=== PATIENT | male | born 1940 | race Caucasian/White ===

== ENCOUNTER 2021-10-24 15:59 | Emergency (ER) | payer MEDICARE, BC ==
[~2021-10-24] VITALS: Ht 182.9 cm; Wt 90.7 kg
[2021-10-24] MEDS ORDERED: APIX2.5T PO (16:14)
--- NOTE | 2021-10-24 16:17 | NUR ---
BIB [facility], from private residence. Provider at bedside. Pt in NAD at this time.
[2021-10-24 17:01] LABS: HEMATOCRIT 45.4 % (36.7-47.1); MEAN CORPUSCULAR HEMOGLOBIN 31.5 uug (23.8-33.4); MEAN CORPUSCULAR VOLUME 94.1 fL (73.0-96.2); PLATELET COUNT (AUTO) 159 K/uL (152-348)
--- NOTE | 2021-10-24 17:04 | NUR ---
Pt taken for CT via gurney by tech. Pt in stable condition at this time
[2021-10-24 17:08] LABS: CREATININE 1.3 mg/dL (0.6-1.3); POTASSIUM 4.6 mmol/L (3.5-5.1)
[2021-10-24] MEDS ORDERED: ATOR40TA PO (17:20)
[2021-10-24] MEDS ORDERED: ALLO100T PO (17:20)
[2021-10-24] MEDS ORDERED: BUPR-319 PO (17:21)
[2021-10-24] MEDS ORDERED: CARB-35 PO (17:21)
[2021-10-24] MEDS ORDERED: IPRA4AER IH (17:22)
--- NOTE | 2021-10-24 17:22 | NUR ---
Pt returned to unit following CT scan. Spouse at bedside. Pt continues to be in stable condition. Both pt and spouse aware of current plan.
[2021-10-24] MEDS ORDERED: FURO-152 PO (17:23)
[2021-10-24] MEDS ORDERED: LITH300T3 PO (17:23)
[2021-10-24] MEDS ORDERED: DOXA8TAB79 PO (17:23)
[2021-10-24 17:24] LABS: BILIRUBIN,DIRECT 0.2 mg/dL (0.0-0.2); BILIRUBIN,TOTAL 0.7 mg/dL (0.2-1.0); TOTAL PROTEIN, SERUM 7.8 g/dL (6.4-8.2)
[2021-10-24] MEDS ORDERED: OMEP40CA21 PO (17:24)
[2021-10-24] MEDS ORDERED: POTA-194 PO (17:25)
[2021-10-24] MEDS ORDERED: ALFU10TA10 PO (17:25)
[2021-10-24] MEDS ORDERED: levaquin PO (17:27)
[2021-10-24 17:37] LABS: *BILIRUBIN,URIN NEGATIVE (NEGATIVE); *CLARITY,URINE CLEAR (CLEAR); *COLOR,URINE YELLOW (YELLOW); *KETONES,URINE NEGATIVE (NEGATIVE); *UROBILINOGEN,URINE 0.2 E.U./dl (NORMAL); LEUKOCYTE ESTERASE ,URINE NEGATIVE (NEGATIVE); NITRITE, URINE NEGATIVE (NEGATIVE); PH,URINE 6.5 (5.0-8.0); UGLUCOSE NEGATIVE (NEGATIVE)
[2021-10-24 17:38] LABS: *BLOOD, URINE TRACE (NEGATIVE); RBC,URINE 0-3 /HPF (0-3)
[2021-10-24 17:39] LABS: BACTERIA,URINE NONE SEEN /HPF (NONE SEEN); WBC,URINE 0-3 /HPF (0-3)
--- NOTE | 2021-10-24 18:30 | NUR ---
Patient discharged to home in stable condition accompanied by spouse. Written and verbal after care instructions given and spouse. Patient and spouse verbalizes understanding of instructions. Stressed follow up or return to ER for worsening s/s.
[2021-10-24 18:49] VITALS: BP 172/73
== END 2021-10-24 18:45 | disposition home or self-care (01) ==
LOC: ER 15:59
DX: R41.0 Disorientation, unspecified (principal); R09.02 Hypoxemia; Z20.822 Contact with and (suspected) exposure to COVID-19; Z82.49 Family history of ischemic heart disease and other diseases of the circulatory system; I48.91 Unspecified atrial fibrillation; R60.0 Localized edema; Z79.01 Long term (current) use of anticoagulants; Z79.899 Other long term (current) drug therapy; M10.9 Gout, unspecified; Z86.718 Personal history of other venous thrombosis and embolism; I11.0 Hypertensive heart disease with heart failure; I50.9 Heart failure, unspecified
CPT/HCPCS: 36415; 70030-TC; 70450; 71045; 83605; 84443; 85025; 85730; 87040; 87086; 87400; 93005; A4663

== ENCOUNTER 2022-05-04 14:44 | Inpatient (IN) | payer MEDICARE, BC ==
[~2022-05-04] VITALS: Ht 182.9 cm; Wt 95.3 kg
[~2022-05-04 14:44] MED LIST: ALFU10TA10 PO; ALLO100T PO; APIX2.5T PO; ATOR40TA PO; BUPR-319 PO; CARB-35 PO; DOXA8TAB79 PO; FURO-152 PO; IPRA4AER IH; LITH300T3 PO; OMEP40CA21 PO; POTA-194 PO; levaquin PO
[2022-05-04] MEDS ORDERED: FAMOTIDINE. 20 MG/2 ML VIAL IV ONE ×2 (15:00→15:17)
--- NOTE | 2022-05-04 15:26 | NUR ---
PT IS IN ROOM #2B. DR BURRELL EVALUATED THE PT.
[2022-05-04 15:30] LABS: HEMATOCRIT 42.1 % (36.7-47.1); MEAN CORPUSCULAR HEMOGLOBIN 31.3 uug (23.8-33.4); MEAN CORPUSCULAR VOLUME 92.6 fL (73.0-96.2); PLATELET COUNT (AUTO) 202 K/uL (152-348)
[2022-05-04 15:38] LABS: CARBON DIOXIDE 36 mmol/L (21-32); CHLORIDE 103 mmol/L (98-107); CREATININE 1.2 mg/dL (0.6-1.3); GLUCOSE 93 mg/dL (74-106); POTASSIUM 3.6 mmol/L (3.5-5.1); UREA NITROGEN, BLOOD 22 mg/dL (7-18)
[2022-05-04 15:49] LABS: ALANINE AMINOTRANSFERASE 17 U/L (16-63); ALKALINE PHOSPHATASE 67 U/L (50-136); ASPARTATE AMINOTRANSFERASE 46 U/L (15-37); BILIRUBIN,DIRECT 0.3 mg/dL (0.0-0.2); BILIRUBIN,TOTAL 0.9 mg/dL (0.2-1.0); TOTAL PROTEIN, SERUM 7.7 g/dL (6.4-8.2)
[2022-05-04] MEDS ORDERED: GABA300C PO (15:52)
[2022-05-04] MEDS ORDERED: BISA10SU61 RC (15:52)
[2022-05-04] MEDS ORDERED: POLY17PO4 PO (15:52)
[2022-05-04] MEDS ORDERED: MAGN400O6 PO (15:52)
[2022-05-04] MEDS ORDERED: SENN-261 PO (15:52)
[2022-05-04] MEDS ORDERED: APIX2.5T PO (15:52)
[2022-05-04] MEDS ORDERED: BUPR300T52 PO (15:52)
[2022-05-04] MEDS ORDERED: ACET-2154 PO (15:52)
[2022-05-04] MEDS ORDERED: NA P133E RC (15:52)
[2022-05-04] MEDS ORDERED: VANCOMYCIN IV 1,000 MG in IV DEXTROSE 5% 250 ML IV ONE (16:15)
[2022-05-04] MEDS ORDERED: PIPERACILLIN SODIUM/TAZOBACTAM 3.375 G in IV DEXTROSE 5% 50 ML IV ONE (16:15)
[2022-05-04] MEDS ORDERED: VANCOMYCIN IV 200 ML ONE (16:28)
[2022-05-04] MEDS ORDERED: PIPERACILLIN/TAZOBACTAM/D5W 50 ML IV ONE ×3 (16:29→22:58)
[2022-05-04] MEDS ORDERED: ONDANSETRON 4 MG/2 ML VIAL IV PRN (19:45)
[2022-05-04] MEDS ORDERED: MORPHINE SULFATE 2 MG/1 ML DISP.SYRIN IV PRN (19:45)
--- NOTE | 2022-05-04 20:07 | NUR ---
Report given to Stefany MARLOW Medsurg.
[2022-05-04 20:30] VITALS: BP 116/41
[2022-05-04] MEDS: LITHIUM CARBONATE 300 MG TABLET.SA PO SCH (21:00)
[2022-05-04] MEDS ORDERED: IPRATROPIUM BROMIDE 0.5 MG/2.5 ML NEBU NEB PRN (22:00)
[2022-05-04] MEDS ORDERED: PIPERACILLIN SODIUM/TAZOBACTAM 3.375 G in IV DEXTROSE 5% 50 ML IV SCH (22:00)
[2022-05-04] MEDS ORDERED: IV D5 1/2 NS 1000 ML 1,000 ML IV PRN (22:00)
[2022-05-04] MEDS ORDERED: ALBUTEROL SULFATE 1.25 MG/3 ML NEBU NEB PRN (22:00)
--- NOTE | 2022-05-04 22:00 | NUR ---
Pt admitted to [facility] from ER via gurney accompanied by ER nurse and daughter. He is alert and oriented x2 with episodes of confusion. Denies pain and discomfort at this times. On room air, no respiratory distress noted. IV access on RFA #20 patent and intact, flushed with NS. Initial and full body assessment done with pictures taken and placed in chart. All needs attended. Safety precautions observed. Will continue to monitor. Addendum: 05/05/22 at 0633 by CHARLIE ONEILL RN Sacrum noted with redness, unable to take picture. Pt refused.
[2022-05-04] MEDS ORDERED: CARBIDOPA/LEVODOPA 25-100MG TABLET ONE (22:45)
[2022-05-04] MEDS ORDERED: ALFUZOSIN HCL 10 MG TAB.SR.24H PO ONE (22:46)
--- NOTE | 2022-05-04 23:00 | NUR ---
Litho-bid not given, medication not available per RN Manual Lathe Machinist.
[2022-05-04] MEDS: ALFUZOSIN HCL 10 MG TAB.SR.24H PO SCH (23:17)
[2022-05-04] MEDS: PIPERACILLIN SODIUM/TAZOBACTAM 3.375 G in IV DEXTROSE 5% 50 ML IV SCH (23:18)
[2022-05-04] MEDS: CARBIDOPA/LEVODOPA 25-100MG TAB.RAPDIS PO SCH (23:19)
[2022-05-05 01:57] LABS: *BILIRUBIN,URIN NEGATIVE (NEGATIVE); *BLOOD, URINE NEGATIVE (NEGATIVE); *CLARITY,URINE CLEAR (CLEAR); *COLOR,URINE YELLOW (YELLOW); *KETONES,URINE NEGATIVE (NEGATIVE); *UROBILINOGEN,URINE 0.2 E.U./dl (NORMAL); LEUKOCYTE ESTERASE ,URINE NEGATIVE (NEGATIVE); NITRITE, URINE NEGATIVE (NEGATIVE); PH,URINE 6.5 (5.0-8.0); UGLUCOSE NEGATIVE (NEGATIVE)
[2022-05-05] MEDS: PIPERACILLIN SODIUM/TAZOBACTAM 3.375 G in IV DEXTROSE 5% 50 ML IV SCH (05:21)
--- NOTE | 2022-05-05 05:33 | NUR ---
Pt intermittently sleeping throughout the night, easily arousable with episodes of confusion, trying to get out of bed, and uses profane language to staff. Refused MRSA swab, blood draw, and nursing care. Risks and benefits explained, pt still refused. Safety precautions observed.
--- NOTE | 2022-05-05 07:30 | NUR ---
received pt sitting on the bed he is being very non compliant. Patient is otherwise stable, no sign of distress noted at this time. Safety precaution are in place. Will continue to monitor.
[2022-05-05] MEDS ORDERED: VANCOMYCIN IV 1,250 MG in IV DEXTROSE 5% 250 ML IV SCH (09:00)
[2022-05-05] MEDS: PANTOPRAZOLE SODIUM 40 MG VIAL IV SCH (09:28)
[2022-05-05] MEDS: buPROPion XL 150 MG TAB.SR.24H PO SCH (09:28)
[2022-05-05] MEDS: VANCOMYCIN IV 1,000 MG in IV DEXTROSE 5% 250 ML IV SCH (09:28)
[2022-05-05] MEDS: FUROSEMIDE 20 MG TABLET PO SCH (09:28)
[2022-05-05] MEDS: CARBIDOPA/LEVODOPA 25-100MG TAB.RAPDIS PO SCH ×3 (09:29→17:58)
[2022-05-05 09:42] VITALS: BP 150/58
[2022-05-05 10:48] LABS: HEMATOCRIT 39.4 % (36.7-47.1); MEAN CORPUSCULAR HEMOGLOBIN 30.8 uug (23.8-33.4); MEAN CORPUSCULAR VOLUME 92.7 fL (73.0-96.2); PLATELET COUNT (AUTO) 168 K/uL (152-348)
[2022-05-05 11:05] LABS: BILIRUBIN,TOTAL 1.2 mg/dL (0.2-1.0); CREATININE 1.2 mg/dL (0.6-1.3); MAGNESIUM 2.2 mg/dL (1.8-2.4); PHOSPHOROUS 2.9 mg/dL (2.5-4.9); POTASSIUM 3.5 mmol/L (3.5-5.1); TOTAL PROTEIN, SERUM 6.8 g/dL (6.4-8.2)
[2022-05-05 11:10] LABS: THYROID STIMULATING HORMONE 1.741 mIU/mL (0.358-3.740)
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
[2022-05-05 14:02] VITALS: BP 154/77
[2022-05-05] MEDS: PIPERACILLIN SODIUM/TAZOBACTAM 3.375 G in IV DEXTROSE 5% 100 ML IV SCH ×2 (14:51→21:49)
[2022-05-05] MEDS ORDERED: BISACODYL 10 MG SUPP.RECT RC PRN (16:30)
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
[2022-05-05 18:12] VITALS: BP 112/52
--- NOTE | 2022-05-05 19:30 | NUR ---
Received pt awake, alert and orientedx3. Family at bedside. Pt in no acute distress. Sitter at bedside. PT iv intact. Safety and comfort provided. Will continue to monitor.
[2022-05-05] MEDS: LITHIUM CARBONATE 300 MG TABLET.SA PO SCH (20:13)
[2022-05-05] MEDS: ALFUZOSIN HCL 10 MG TAB.SR.24H PO SCH (20:15)
[2022-05-05 20:30] VITALS: BP 149/81
[2022-05-06] VITALS (7 sets, daily range): BP systolic 101–204; BP diastolic 35–98
[2022-05-06] MEDS: OLANZAPINE 10 MG VIAL IM PRN ×2 (00:03→10:40)
--- NOTE | 2022-05-06 00:13 | NUR ---
at 0003H Zyprexa IM 2.g mg given to pt. Pt combative, twisting arms and hands of staff, , yelling, shouting and kicking staff. Sitter at bedside for safety. Pt tolerated the zyprexa medication. Will continue to monitor.
[2022-05-06] MEDS: ACETAMINOPHEN 325 MG TABLET PO PRN (00:29)
--- NOTE | 2022-05-06 01:30 | NUR ---
Zyprexa prn that was given is effective. Pt more calmer. sitter at bedside for safety.
[2022-05-06] MEDS: VANCOMYCIN IV 1,000 MG in IV DEXTROSE 5% 250 ML IV SCH ×2 (03:17→20:35)
[2022-05-06] MEDS: PIPERACILLIN SODIUM/TAZOBACTAM 3.375 G in IV DEXTROSE 5% 100 ML IV SCH ×3 (05:35→22:09)
--- NOTE | 2022-05-06 06:20 | NUR ---
Pt slept intermittently. Pt in no acute distress. Prescribed medication given and pt tolerated it well. Safety and comfort provided.All needs are met.Pt on controlled afib. Sitter at bedside for safety.Pt combative,hitting staff, trying to pull out iv, and yelling. Needs reorientation. Vital signs within normal limit. Will endorse to incoming nurse for continuity of care.
--- NOTE | 2022-05-06 08:00 | NUR ---
Received patient in bed, alert to self, speech is unclear. Able to comprehend simple questions. Patient noted off IV fluids due to puilling on IV lines. Noted to be mildly agitated in bed, restless. One on one sitter at bed side for safety. No vomiting noted, no stool. ABD is soft and non distended. Call light within reach.
[2022-05-06] MEDS: FUROSEMIDE 20 MG TABLET PO SCH (08:41)
[2022-05-06] MEDS: buPROPion XL 150 MG TAB.SR.24H PO SCH (08:41)
[2022-05-06] MEDS: PANTOPRAZOLE SODIUM 40 MG VIAL IV SCH (08:41)
[2022-05-06] MEDS: CARBIDOPA/LEVODOPA 25-100MG TAB.RAPDIS PO SCH ×2 (08:42→14:25)
--- NOTE | 2022-05-06 09:00 | NUR ---
Noted with elevated blood pressure 170/67, Dr. Kruger made aware, pending orders.
[2022-05-06] MEDS ORDERED: hydrALAZINE HCL 25 MG TABLET PO PRN (09:45)
--- NOTE | 2022-05-06 10:10 | NUR ---
Apresoline 25mg PO provided for elevated blood pressure.
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
[2022-05-06] MEDS ORDERED: CLONIDINE-TTS 1 PATCH TD SCH (13:00)
--- NOTE | 2022-05-06 13:00 | NUR ---
Patient noted to have one episode verbalizing not being able to breath at 12noon. VS assessed and noted with Hypertension with BP 204/98 and oxygen desaturation to 83% on RA. Patient placed on 10L 02 via simple mask and slowly able to recover to 02 sats 96%. Patient still verbalizing not being able to breath. MD made aware with orders for stat Chest xray and clonodine patch. Patient able to recover and state he feels relief of respiratory distress. chest Xray completed, pending results.
--- NOTE | 2022-05-06 14:00 | NUR ---
Patient B/p decreased to 101/35, Dr. Rosenberg made aware and DC'd Clonodine patch. Able to titrate oxygen to 3L via NC and is holding 02 sats of 99-100%
--- NOTE | 2022-05-06 16:16 | NUR ---
Followed up with Xray at this time for results of stat chest xray done this afternoon. Patient is still somewhat restless in bed, alert to self, speech remains unclear. One on one sitter continued for safety. Diet was upgraded to puree with aspiration precautions, patient refusing to eat. at bedside and attempted feeding and providing PO fluids while nurse observed but patient refused, he only took 4 sips of water. Patient noted attempting to hit and staff when being assisted in feeding and care. Patient remains on Bilateral wrist restraints and mittens. All needs attended.
[2022-05-06] MEDS: CARBIDOPA/LEVODOPA 25-100MG TABLET PO SCH (17:33)
--- NOTE | 2022-05-06 19:30 | NUR ---
Received pt awake, alert and orientedx2. Pt in no acute distress. Iv intact. Restraint on and sitter at bedside.Safety and comfort provided. Will continue to monitor.
--- NOTE | 2022-05-06 19:45 | NUR ---
Pt daughter Millie on the room with the pt. Updated daughter regarding his dad. Restraint taken off as pt is calmer.
--- NOTE | 2022-05-06 19:48 | NUR ---
Daughter Millie arguing with staff regarding pt restraint. Staff explained to the daughter why the restraint was ordered to her father.
--- NOTE | 2022-05-06 20:00 | NUR ---
Daughter and son of pt on the room with sitter.
[2022-05-06] MEDS: LITHIUM CARBONATE 300 MG TABLET.SA PO SCH (20:35)
[2022-05-06] MEDS: ALFUZOSIN HCL 10 MG TAB.SR.24H PO SCH (20:35)
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
--- NOTE | 2022-05-06 22:00 | NUR ---
Daughter Millie called and asked regarding swallow eval for the pt and asked about restraint.
--- NOTE | 2022-05-06 23:12 | NUR ---
Dr. Kruger ordered swallow evaluation for pt.
[2022-05-07 00:10] VITALS: BP 138/60
[2022-05-07 04:00] VITALS: BP 154/52
--- NOTE | 2022-05-07 04:54 | NUR ---
Pt Iv changed to right forearm 22G. Pt restraint taken off when pt is sleeping but when pt awake need to put it on because pt is trying to pull out iv and his oxygen, trying to hit staff when we change and reposition pt. Daughter Millie called for update . Inform her that we put his father on restraint. Safety and comfort provided. Will continue to monitor.
[2022-05-07] MEDS: PIPERACILLIN SODIUM/TAZOBACTAM 3.375 G in IV DEXTROSE 5% 100 ML IV SCH ×2 (05:44→13:16)
[2022-05-07 06:17] VITALS: BP 147/62
--- NOTE | 2022-05-07 06:18 | NUR ---
Pt slept intermittently. Pt on and off with the restraints. Pt when awake is restless and trying to pull out iv, taking off the nasal cannula, trying to hit staff whenever staff change his diaper and reposition him. PT in no acute respiratory distress. Prescribed medication given and pt tolerated it well. Iv intact on right forearm 22g. Vital signs within normal limit. Safety and comfort provided. Will endorse to incoming nurse for continuity of care.
[2022-05-07 07:06] LABS: HEMATOCRIT 38.1 % (36.7-47.1); MEAN CORPUSCULAR HEMOGLOBIN 30.9 uug (23.8-33.4); PLATELET COUNT (AUTO) 155 K/uL (152-348)
[2022-05-07 07:07] LABS: CARBON DIOXIDE 35 mmol/L (21-32); CHLORIDE 106 mmol/L (98-107); CREATININE 1.5 mg/dL (0.6-1.3); GLUCOSE 100 mg/dL (74-106); PHOSPHOROUS 3.8 mg/dL (2.5-4.9); POTASSIUM 3.9 mmol/L (3.5-5.1); UREA NITROGEN, BLOOD 12 mg/dL (7-18)
--- NOTE | 2022-05-07 07:20 | NUR ---
RECEIVED PATIENT IN BED WITH EYES CLOSED BUT TENDS TO BE COMBATIVE WHEN TURN TO SIDE, NO SS OF PAIN OR DISTRESS ON 1L NC. CONTINUE WITH SAFETY RESTRAINT. CONTROLLED AFIB ON MONITOR
[2022-05-07 08:00] VITALS: BP 131/56
[2022-05-07] MEDS: buPROPion XL 150 MG TAB.SR.24H PO SCH (08:45)
[2022-05-07] MEDS: CARBIDOPA/LEVODOPA 25-100MG TABLET PO SCH ×3 (08:45→16:39)
[2022-05-07] MEDS: PANTOPRAZOLE SODIUM 40 MG VIAL IV SCH (08:45)
[2022-05-07 12:00] VITALS: BP 133/59
--- NOTE | 2022-05-07 12:00 | NUR ---
NO ACUTE CHANGE FROM MORNING ASSESSMENT, SEEN BY HOSPITALIST SEE NOTES
[2022-05-07] MEDS ORDERED: IV D5W 1000ML 1,000 ML IV PRN (14:15)
[2022-05-07] MEDS ORDERED: IV D5W 1000ML 1,000 ML IV ONE (14:21)
[2022-05-07] MEDS: VANCOMYCIN IV 1,000 MG in IV DEXTROSE 5% 250 ML IV SCH (14:41)
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
--- NOTE | 2022-05-07 17:19 | NUR ---
PATIENT CONTINUE TO HAVE 1;1 SITTER FOR SAFETY WITH DAUGHTER AT BEDSIDE. TOLERATING PUREED DIET WELL. DAUGHTER ASKING FOR REGULAR DIET TRIED TO REACH DR DAVIS AWAITING CALL BACK. NO SIGNS OF BLEEDING RECTALLY. CONTINUE ON IV ANTIBIOTIC. AFEBRILE. AFIB ON MONITOR CONTROLLED
--- NOTE | 2022-05-07 19:30 | NUR ---
Received pt awake, alert and orientedx2. Pt in no acute distress. Iv intact. Restraint on and sitter at bedside.Family at bedside. Safety and comfort provided. Will continue to monitor.
[2022-05-07 20:00] VITALS: BP 137/57
[2022-05-07] MEDS ORDERED: BISACODYL 5 MG TABLET.DR PO ONE (20:30)
[2022-05-07] MEDS ORDERED: CEFTRIAXONE 1 G in IV DEXTROSE 5% 50 ML IV SCH (21:00)
[2022-05-07] MEDS: ALFUZOSIN HCL 10 MG TAB.SR.24H PO SCH (21:24)
[2022-05-07] MEDS: LITHIUM CARBONATE 300 MG TABLET.SA PO SCH (21:24)
[2022-05-07] MEDS: APIXABAN 2.5 MG TABLET PO SCH (21:26)
[2022-05-07] MEDS: DOCUSATE SODIUM 100 MG CAPSULE PO SCH (21:30)
[2022-05-08 00:24] VITALS: BP 135/62
--- NOTE | 2022-05-08 00:27 | NUR ---
Pt confused and needed reorientation. Will continue to monitor.
[2022-05-08 00:47] LABS: *BILIRUBIN,URIN NEGATIVE (NEGATIVE); *BLOOD, URINE NEGATIVE (NEGATIVE); *CLARITY,URINE CLEAR (CLEAR); *COLOR,URINE YELLOW (YELLOW); *KETONES,URINE NEGATIVE (NEGATIVE); LEUKOCYTE ESTERASE ,URINE TRACE (NEGATIVE); NITRITE, URINE NEGATIVE (NEGATIVE); UGLUCOSE NEGATIVE (NEGATIVE)
--- NOTE | 2022-05-08 00:49 | NUR ---
Daughter Millie called and ask for update regarding his dad.
--- NOTE | 2022-05-08 01:00 | NUR ---
Pt awake and yelling to staff to get out of the room. Pt confused and needs reorientation. Pt restless. Will continue to monitor.
[2022-05-08] MEDS: QUETIAPINE FUMARATE 25 MG TABLET PO PRN ×3 (01:02→15:51)
[2022-05-08 01:06] LABS: *CREATININE,URINE 132.7 mg/dL (30-125); *URINE TOTAL PROTEIN RANDOM 38.9 mg/dL (<150/24HR); BACTERIA,URINE NONE SEEN /HPF (NONE SEEN); RBC,URINE 0-3 /HPF (0-3); SQUAMOUS EPITHELIAL CELL,UR MODERATE /HPF (NONE SEEN)
[2022-05-08] MEDS: ACETAMINOPHEN 325 MG TABLET PO PRN (01:40)
--- NOTE | 2022-05-08 03:54 | NUR ---
Pt given Seroquel 12.5 mg prn for anxiety. Pt needed it as per nursing assessment. Pt yelling at staff ,try to kick staff and disturbing other pt. Pt reorientation needed but pt confuse. Tylenol 650mg at 0140H prn given to pt. Pt tolerated it well. Will continue to monitor.
[2022-05-08 04:30] VITALS: BP 143/58
--- NOTE | 2022-05-08 04:54 | NUR ---
Pt Seroquel not effective as per pt still is restless and anxious. Pt in no acute distress. Safety and comfort provided. Will continue to monitor.
--- NOTE | 2022-05-08 06:10 | NUR ---
Pt on room air with 96% oxygen.
--- NOTE | 2022-05-08 06:11 | NUR ---
Pt on Controlled afib.
--- NOTE | 2022-05-08 06:12 | NUR ---
Pt slept intermittently. Pt on and off with the restraints. PT in no acute respiratory distress. Pt had no bowel movement on my shift. Pt urine sample sent to lab. Pt have episodes of anxiety and confusion. Needs reorientation. Prescribed medication given and pt tolerated it well. Iv intact on right forearm 22g. Vital signs within normal limit. Safety and comfort provided. Will endorse to incoming nurse for continuity of care.
[2022-05-08 06:25] LABS: MEAN CORPUSCULAR VOLUME 92.5 fL (73.0-96.2); PLATELET COUNT (AUTO) 159 K/uL (152-348)
[2022-05-08 06:28] LABS: BILIRUBIN,TOTAL 0.8 mg/dL (0.2-1.0); CREATININE 1.3 mg/dL (0.6-1.3); POTASSIUM 3.2 mmol/L (3.5-5.1); TOTAL PROTEIN, SERUM 6.4 g/dL (6.4-8.2)
[2022-05-08] MEDS: POTASSIUM CHLORIDE 50 ML IV SCH ×4 (07:52→12:22)
[2022-05-08 08:00] VITALS: BP 154/60
--- NOTE | 2022-05-08 08:00 | NUR ---
AWAKE ALERT BUT CONFUSED X3, CONTINUE WITH 1:1 SITTER FOR SAFETY. LOW K CALLED TO MD WITH ORDER TO REPLACED 4 BAGS OF K. CONTROLLED AFIB ON MONITOR
[2022-05-08] MEDS ORDERED: buPROPion XL 150 MG TAB.SR.24H PO SCH (09:00)
[2022-05-08] MEDS: CARBIDOPA/LEVODOPA 25-100MG TABLET PO SCH ×3 (09:21→15:51)
[2022-05-08] MEDS: APIXABAN 2.5 MG TABLET PO SCH (09:22)
[2022-05-08] MEDS: DOCUSATE SODIUM 100 MG CAPSULE PO SCH (09:23)
[2022-05-08] MEDS: PANTOPRAZOLE SODIUM 40 MG VIAL IV SCH (09:23)
[2022-05-08] MEDS: VANCOMYCIN IV 1,000 MG in IV DEXTROSE 5% 250 ML IV SCH (09:25)
[2022-05-08 11:58] VITALS: BP 142/56
--- NOTE | 2022-05-08 12:00 | NUR ---
SEEN BY HOSPITALIST WITH PLAN TO DC TO SNF
[2022-05-08] MEDS ORDERED: AMOX-427 PO (14:33)
[2022-05-08] MEDS ORDERED: QUET25TA36 PO (14:33)
[2022-05-08] MEDS ORDERED: DOXY-326 PO (14:33)
--- NOTE | 2022-05-08 15:00 | NUR ---
PRINTED CIRCUIT BOARD ASSEMBLY REPAIRER SPOKED WITH SON AND AGREED DISCHARGE TO SNF. SEE NOTES
--- NOTE | 2022-05-08 16:26 | NUR ---
DISCHARGED TO [facility], REPORT GIVEN TO STAFF. STABLE.
== END 2022-05-08 17:05 | DRG 871 ==
LOC: ER 14:44 → MEDSURG3 18:15 → TELE3 20:52
PROVIDERS: ADMIT Internal Medicine; ATTEND Nurse Practitioner Acute Care
DX: A41.9 Sepsis, unspecified organism (principal); G92.8 Other toxic encephalopathy; N17.0 Acute kidney failure with tubular necrosis; L03.116 Cellulitis of left lower limb; E87.0 Hyperosmolality and hypernatremia; I48.20 Chronic atrial fibrillation, unspecified; J98.11 Atelectasis; I13.0 Hypertensive heart and chronic kidney disease with heart failure and stage 1 through stage 4 chronic kidney disease, or unspecified chronic kidney disease; A04.9 Bacterial intestinal infection, unspecified; K92.2 Gastrointestinal hemorrhage, unspecified; K56.41 Fecal impaction; E78.5 Hyperlipidemia, unspecified; G20 Parkinson's disease; I50.9 Heart failure, unspecified; Z20.822 Contact with and (suspected) exposure to COVID-19; Z78.1 Physical restraint status; Z79.01 Long term (current) use of anticoagulants; Z87.891 Personal history of nicotine dependence; F31.9 Bipolar disorder, unspecified; Z74.09 Other reduced mobility; N40.0 Benign prostatic hyperplasia without lower urinary tract symptoms; K21.9 Gastro-esophageal reflux disease without esophagitis; G62.9 Polyneuropathy, unspecified; N18.9 Chronic kidney disease, unspecified; F29 Unspecified psychosis not due to a substance or known physiological condition; K64.8 Other hemorrhoids; F02.80 Dementia in other diseases classified elsewhere, unspecified severity, without behavioral disturbance, psychotic disturbance, mood disturbance, and anxiety
CPT/HCPCS: 36415; 70030-TC; 71045; 82378; 83550; 83605; 83735; 83970; 84100; 84156; 84300; 84443; 84484; 85025; 85730; 86850; 86900; 86901; 87040; 87086; 93005; A4663; A6209; C9113; G0378; J0696; J2270; J2358; J2543; J3370; J3480; J3490; J7040; J7050; J7070; J8499